=== PATIENT | female | born 2000 | race Caucasian/White ===

== ENCOUNTER 2023-04-27 20:58 | Emergency (ER) | payer MEDICAID | END 2023-04-27 21:36 | disposition left against medical advice (07) | LOC: ER 20:59 | DX: M79.606 Pain in leg, unspecified (principal); Z53.21 Procedure and treatment not carried out due to patient leaving prior to being seen by health care provider ==

== ENCOUNTER 2025-02-18 12:00 | Emergency (ER) | payer MEDICAID ==
[~2025-02-18] VITALS: Ht 160 cm; Wt 80.0 kg
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
[2025-02-18] MEDS: ketorolac trometh 15mg/ml vial 15 MG/ML ML IM ONE (13:24)
--- NOTE | 2025-02-18 13:41 | RADIOLOGY REPORT ---
CLINICAL INDICATION: ELBOW PAIN TECHNIQUE: 3 radiographic views of the left elbow were obtained. Comparison: None FINDINGS/IMPRESSION: There is no evidence of acute fracture or dislocation. The visualized joint space is well maintained. The alignment is anatomical. There is no radiopaque foreign body.
[2025-02-18 15:12] VITALS: TEMP 99.1
[2025-02-18 15:14] VITALS: BP 112/71; PULSE 86; RESP 16; O2SAT 98
== END 2025-02-18 15:17 | disposition home or self-care (01) ==
LOC: ER 12:01
DX: M25.522 Pain in left elbow (principal); R10.A1 Flank pain, right side
CPT/HCPCS: 73080; 96372; 99283; J1885